=== PATIENT | female | born 1945 | race Asian ===

== ENCOUNTER 2022-07-04 09:35 | Emergency (ER) | payer OTHER ==
[~2022-07-04] VITALS: Ht 149.9 cm; Wt 39.9 kg
[2022-07-04 09:42] VITALS: BP_SYST 151
--- NOTE | 2022-07-04 10:35 | NUR ---
MD MACK IN TRIAGE FOR MSE.
[2022-07-04] MEDS ORDERED: IBUP-2018 PO (12:43)
[2022-07-04] MEDS ORDERED: HYDR-3917 PO (12:43)
[2022-07-04 13:00] VITALS: BP_SYST 137
--- NOTE | 2022-07-04 13:00 | NUR ---
Patient given written and verbal discharge instructions and verbalizes understanding. ER MD discussed with patient the results and treatment provided. Patient in stable condition. ID arm band removed. IV catheter removed intact and dressing applied, no active bleeding. Rx of NORCO, IBUPROFEN given. Patient educated on pain management and to follow up with PMD. Pain Scale 2/10 BACK. Opportunity for questions provided and answered. Medication side effect fact sheet provided.
== END 2022-07-04 13:00 | disposition home or self-care (01) ==
LOC: SED 09:35
DX: S00.93XA Contusion of unspecified part of head, initial encounter (principal); R07.89 Other chest pain; R10.9 Unspecified abdominal pain; Z79.899 Other long term (current) drug therapy; V89.2XXA Person injured in unspecified motor-vehicle accident, traffic, initial encounter; Y93.89 Activity, other specified; Y92.89 Other specified places as the place of occurrence of the external cause; Y99.8 Other external cause status
CPT/HCPCS: 70450-TC; 71045; 72125-TC; 76376; 99284

== ENCOUNTER 2023-04-13 10:42 | Emergency (ER) | payer OTHER ==
[~2023-04-13] VITALS: Ht 152.4 cm; Wt 36.3 kg
[~2023-04-13 10:42] MED LIST: HYDR-3917 PO; IBUP-2018 PO
[2023-04-13] MEDS ORDERED: FOLI0.8T3 PO (10:56)
[2023-04-13] MEDS ORDERED: CYAN-45 PO (10:56)
[2023-04-13] MEDS ORDERED: DENO60DI INJ (10:56)
[2023-04-13] MEDS ORDERED: LIP10 PO (10:56)
[2023-04-13] MEDS ORDERED: OMEG-176 PO (10:56)
[2023-04-13] MEDS ORDERED: MULT-1117 PO (10:56)
[2023-04-13] MEDS ORDERED: CALC-1155 PO (10:56)
[2023-04-13 10:57] VITALS: BP_SYST 146; PULSE 98; RESP 16; TEMP 99; O2SAT 97
[2023-04-13] MEDS ORDERED: ACETAMINOPHEN 500 MG TABLET PO ONE (12:15)
[2023-04-13 13:56] VITALS: BP_SYST 116; PULSE 72; TEMP 97.9; O2SAT 96
== END 2023-04-13 13:56 | disposition home or self-care (01) ==
LOC: SED 10:42
DX: M75.31 Calcific tendinitis of right shoulder (principal); M25.511 Pain in right shoulder; Z79.899 Other long term (current) drug therapy
CPT/HCPCS: 73030; 99283